=== PATIENT | male | born 1975 | race Caucasian/White ===

== ENCOUNTER 2017-07-06 10:33 | Emergency (ER) | payer OTHER ==
[~2017-07-06] VITALS: Ht 180.3 cm; Wt 97.5 kg
[2017-07-06 10:43] VITALS: BP 149/100
--- NOTE | 2017-07-06 11:20 | PHYS DOC ---
Past Medical History Past Medical History: No Pertinent History Past Surgical History: No Surgical History Alcohol Use: Occasionally Drug Use: None Adult General Chief Complaint Chief Complaint: LACERATION/AVULSION [facility] HPI Patient is a 42 year old male presents emergency department stating that he was looking addressed While he was at work and was walking along and hit his head on a beam. He has a 1 cm laceration noted above his right eye. He denies any loss of consciousness denies any neck pain or discomfort. Patient has not taken anything for the pain and discomfort. He is unsure when his last tetanus immunization occurred. Steri-Strips noted over the site with no bleeding or drainage noted. Review of Systems Review of Systems Constitutional: Denies fever or chills [] Eyes: Denies change in visual acuity, redness, or eye pain [] HENT: Denies nasal congestion or sore throat [] Respiratory: Denies cough or shortness of breath [] Cardiovascular: No additional information not addressed in HPI [] GI: Denies abdominal pain, nausea, vomiting, bloody stools or diarrhea [] : Denies dysuria or hematuria [] Musculoskeletal: Denies back pain or joint pain [] Integument: Denies rash or skin lesions. Laceration noted to the right eye brow Neurologic: Denies headache, focal weakness or sensory changes [] Endocrine: Denies polyuria or polydipsia [] Current Medications Current Medications Current Medications Medications (Trade) Dose Ordered Sig/Keith Start Time Stop Time Status Last Admin Dose Admin Diphtheria/ Tetanus/Acell Pertussis (Boostrix) 0.5 ml ONCE ONCE 07/06/17 11:30 07/06/17 11:31 DC 07/06/17 11:31 0.5 ML Lidocaine/Sodium Bicarbonate (Buffered Lidocaine 1%) 20 ml 1X ONCE 07/06/17 11:30 07/06/17 11:31 DC 07/06/17 11:28 20 ML Allergies Allergies Allergies Coded Allergies Type Severity Reaction Last Updated Verified No Known Drug Allergies 07/06/17 No Physical Exam Physical Exam Constitutional: Well developed, well nourished, no acute distress, non-toxic appearance. [] HENT: Normocephalic, atraumatic, bilateral external ears normal, oropharynx moist, no oral exudates, nose normal. [] Eyes: PERRLA, EOMI, conjunctiva normal, no discharge. [] Neck: Normal range of motion, no tenderness, supple, no stridor. [] Cardiovascular:Heart rate regular rhythm, no murmur [] Lungs & Thorax: Bilateral breath sounds clear to auscultation [] Skin: Warm, dry, no erythema, no rash. Patient with a 2 cm laceration noted above the right eye brow, bleeding is controlled. Extremities: No tenderness, no cyanosis, no clubbing, ROM intact, no edema. [] Neurologic: Alert and oriented X 3, normal motor function, normal sensory function, no focal deficits noted. [] Psychologic: Affect normal, judgement normal, mood normal. [] Current Patient Data Vital Signs Vital Signs Date Time Temp Pulse Resp B/P (MAP) Pulse Ox O2 Delivery O2 Flow Rate FiO2 07/06/17 10:43 98.5 71 18 95 Room Air 98.5 EKG EKG [] Radiology/Procedures Radiology/Procedures [] Course & Med Decision Making Course & Med Decision Making Pertinent Labs and Imaging studies reviewed. (See chart for details) She was provided with discharge instructions, treatment regimens and follow-up recommendations. Recommended that the keep the area clean and dry. Clean the site twice day with soap and water and apply antibiotic ointment to the area. He was provided with signs and symptoms of infection: Redness, warmth, tenderness or any yellow/greenish transient become from the site physician occur and is to follow up with his primary care physician immediately. Patient was encouraged to use Tylenol or ibuprofen for pain and discomfort. Also recommended ice packs on 20 minutes off 20 minutes several times a day. Patient agrees with discharge instructions, treatment regimens and follow-up recommendations. His also recommended to follow-up with his workup physician for any further treatments. Signs and symptoms to return to the emergency department has been provided. all questions and concerns answered at the patients bedside. [] Dragon Disclaimer Dragon Disclaimer This electronic medical record was generated, in whole or in part, using a voice recognition dictation system. Departure Departure Impression: Primary Impression: Laceration of face Disposition: HOME, SELF-CARE Condition: STABLE Patient Instructions: Facial Laceration, [id number] Additional Instructions: Activity as tolerated. Keep the area clean and dry. Clean the site with soap and water and apply antibiotic ointment to the area twice a day. Watch for signs and symptoms of infection: Redness, warmth, tenderness or any yellow/green drainage of a come from the site physician occur follow-up to primary care physician immediately. Tylenol or ibuprofen for pain and discomfort. Ice packs on 20 minutes off 20 minutes several times a day. Follow-up with your work comp physician next 5-7 days for suture removal. Return back to emergency prior signs symptoms of become worse. Laceration/Wound Repair Laceration/Wound Repair : Wound Location: face Wound's Depth, Shape: superficial Wound Length (cm): 2 Wound Explored: clean Irrigated w/ Saline (ccs): 12 Betadine Prep?: Yes Anesthesia: 1% Lidocaine Volume Anesthetic (ccs): 4 Wound Debrided: minimal Wound Repaired With: sutures Suture Size/Type: 6:0, nylon Number of Sutures: 6 Progress Site was injected with 1% buffered lidocaine with 4 mL. Site was then irrigated with 20 mL of normal saline as the patient states that he cleaned it with alcohol prior to arrival. Site was cleaned with Betadine and sterile drapes was applied. No foreign bodies noted in the area. 6-[address] was [address] to [address] 6 interrupted sutures. Problem Qualifiers Primary Impression: Laceration of face Encounter type: initial encounter Qualified Codes: S01.81XA - Laceration without foreign body of other part of head, initial encounter ZEYAD TRUJILLO APRN Jul 06, 2017 11:20
[2017-07-06] MEDS: LIDOCAINE 1% / SOD BICARB 8.4% 20 ML VIAL. IJ ONE (11:28)
[2017-07-06] MEDS: DIPHTH,PERTUSS(ACELL),TET TOX 0.5 ML DISP.SYRIN. VAX IM ONE (11:31)
== END 2017-07-06 12:20 | disposition home or self-care (01) ==
LOC: ER 10:33
DX: S01.81XA Laceration without foreign body of other part of head, initial encounter (principal); W22.8XXA Striking against or struck by other objects, initial encounter; Y99.0 Civilian activity done for income or pay; Y99.8 Other external cause status; Y92.69 Other specified industrial and construction area as the place of occurrence of the external cause
CPT/HCPCS: 12011; 90471; 90715; 96372; 99283-25